=== PATIENT | female | born 1955 | race Caucasian/White ===

== ENCOUNTER 2018-12-08 19:28 | Emergency (ER) | payer OTHER, SELFPAY ==
[2018-12-08 19:30] VITALS: BP 158/76; PULSE 90; RESP 18; TEMP 37.1; O2SAT 97; BMI 31.3
--- NOTE | 2018-12-08 19:39 | DI.US.S_ITS ---
PROCEDURE: US PERIPH VENOUS LOW EXTREM RT INDICATIONS: RIGHT LEG SWELLING AND CALF PAIN TECHNIQUE: Real-time imaging, as well as color and pulse Doppler interrogation, were performed of the lower extremity deep veins from the inguinal ligament to the popliteal fossa. COMPARISON: None. FINDINGS: The common femoral, femoral and popliteal veins are normally compressible, and free of intraluminal thrombus. Color and pulse Doppler demonstrate normal phasic intraluminal flow. There is normal augmentation response to distal compression maneuver. There is to be an intramuscular hematoma at the right lower extremity measuring up to 1.5 x 8.4 x 19.4 cm in the current area clinical concern. IMPRESSION: No DVT found. Presumed intramuscular hematoma as discussed above within the area of current clinical concern. Dictated by: Mariano Kam M.D. on 12/08/2018 at 21:29 Approved by: Mariano Kam M.D. on 12/08/2018 at 21:30
--- NOTE | 2018-12-08 19:54 | ED.EXTPRO ---
HPI - Extremity Problem <GIANLUCA Watson - Last Filed: 12/08/18 21:19> General Chief complaint: Extremity Problem,Nontraumatic Stated complaint: pain left leg, sent to rule out blood clot Time Seen by Provider: 12/08/18 19:32 Source: patient Mode of arrival: ambulatory Limitations: no limitations History of Present Illness HPI Narrative: 63-year-old female that a significant medical history, presents emergency department today complaining of right leg swelling for the past week. She states the swelling started a week ago while at work, patient states she works at [email or web address] and is often walking around and standing a lot. She states that she has been struggling with her rate knee swelling due to arthritis. Patient states a few days ago she noticed that the pain started to develop in her calf, she presented to the emergency department she was worried about a blood clot. Denies any history of blood clots or taking any blood thinner. She denies dizziness, chest pain, shortness of breath, headaches, vision changes, nausea, vomiting, bowel or bladder changes, or syncope. MD Complaint: extremity pain Review of Systems <GIANLUCA Watson - Last Filed: 12/08/18 21:19> Review of Systems PHYSICAL EXAMINATION: GENERAL: Well groomed, alert, and cooperative. Answers questions promptly and appropriately. Vital signs noted. HENT: Normocephalic, atraumatic. EYES: Symmetrical, sclera white, no periorbital swelling. CARDIOVASCULAR: S1 and S2 sounds normal. Regular rate and rhythm, no murmurs, clicks, or bruits. No pedal edema. RESPIRATORY: Normal respiratory rate, trachea midline, airway patent. No stridor, nasal flaring or accessory muscle use. Lungs are clear in all martell. MUSCULOSKELETAL: Normal gait and coordination. Equal tone and mass bilaterally. No spinal tenderness or deformities. EXTREMITIES: CMS intact. No pedal edema. SKIN: Warm, dry, soft, appropriate color for ethnicity. No lesions, rashes, or wounds. NEURO: Alert and Oriented X 3. No sensory deficits. PSYCH: Appropriate affect and mood. PFSH <GIANLUCA Watson - Last Filed: 12/08/18 21:19> Medical History No significant medical problems (Acute) Social History Smoking Status: Never smoker Social History Smoking Status: Never smoker Exam <GIANLUCA Watson - Last Filed: 12/08/18 21:19> Initial Vital Signs Initial Vital Signs: Vital Signs Temperature 98.8 F 12/08/18 19:30 Pulse Rate 90 12/08/18 19:30 Respiratory Rate 18 12/08/18 19:30 Blood Pressure 158/76 H 12/08/18 19:30 Pulse Oximetry 97 12/08/18 19:30 PHYSICAL EXAMINATION: GENERAL: Well groomed, alert, and cooperative. Answers questions promptly and appropriately. Vital signs noted. HENT: Normocephalic, atraumatic. EYES: Symmetrical, sclera white, no periorbital swelling. CARDIOVASCULAR: S1 and S2 sounds normal. Regular rate and rhythm, no murmurs, clicks, or bruits. No pedal edema. RESPIRATORY: Normal respiratory rate, trachea midline, airway patent. No stridor, nasal flaring or accessory muscle use. Lungs are clear in all martell. MUSCULOSKELETAL: Significant right lower extremity edema that is concentrated around her right ankle, slight edema located around the medial aspect of her knee. No erythema, increased warmth, ecchymosis, or tenderness with palpation to ankle or knee. Patient exhibited calf tenderness upon palpation. Normal gait and coordination. Equal tone and mass bilaterally. No spinal tenderness or deformities. EXTREMITIES: CMS intact. SKIN: Warm, dry, soft, appropriate color for ethnicity. No lesions, rashes, or wounds. NEURO: Alert and Oriented X 3. No sensory deficits. PSYCH: Appropriate affect and mood. <Sameer Alberto MD - Last Filed: 12/09/18 04:30> Initial Vital Signs Initial Vital Signs: Vital Signs Temperature 98.8 F 12/08/18 19:30 Pulse Rate 90 12/08/18 19:30 Respiratory Rate 18 12/08/18 19:30 Blood Pressure 158/76 H 12/08/18 19:30 Pulse Oximetry 97 12/08/18 19:30 Course <GIANLUCA Watson - Last Filed: 12/08/18 21:19> Course Narrative: Patient presented to eating nurse's test before her results were complete stating that she needed to catch the very, she was offered an Against Medical Advice form which she signed. I advised patient that she should wait for the results as further treatment would be required if she has a blood clot, the risks of leaving would be financial liability as well as further injury or even , patient left before her ultrasound was resulted. Against Medical Advice form signed and witnessed by RN. Orders Ordered: ED Orders 12/08/18 19:39 US periph venous low extrem rt Stat 12/08/18 19:55 B Type Natriuretic Peptide Stat Complete Blood Count AUTO DIFF Stat Comprehensive Metabolic Panel Stat Partial Thromboplastin Time Stat Prothrombin Time INR Stat Consultations Consultation #1: Consulted with Dr. Alberto. Vital Signs - 8 hr 12/08/18 20:30 Pulse Rate 96 H Blood Pressure [Right Arm] 112/63 Pulse Oximetry 66 L <Sameer Alberto MD - Last Filed: 12/09/18 04:30> Orders Ordered: ED Orders 12/08/18 19:39 US periph venous low extrem rt Stat 12/08/18 19:55 B Type Natriuretic Peptide Stat Complete Blood Count AUTO DIFF Stat Comprehensive Metabolic Panel Stat Partial Thromboplastin Time Stat Prothrombin Time INR Stat Vital Signs - 8 hr 12/08/18 20:30 Pulse Rate 96 H Blood Pressure [Right Arm] 112/63 Pulse Oximetry 66 L MDM - Extremity (Nontraumatic) <GIANLUCA Watson - Last Filed: 12/08/18 21:19> Medical Records Attestation: I reviewed the patient's medical records. Lab Data Attestation: I reviewed the patient's lab results. Result diagrams: 12/08/18 19:55 12/08/18 19:55 Lab Results 12/08/18 12/08/18 12/08/18 Range/Units 19:55 19:55 19:55 WBC 6.3 (4.5-11.0) X10^3/uL RBC 4.70 (4.0-5.2) X10^6/uL Hgb 14.7 (12.0-16.0) g/dL Hct 44.2 (36-46) % MCV 94.1 (80-100) fL MCH 31.2 (26-34) PG MCHC 33.2 (30-36) % RDW 12.7 (11.6-14.8) % Plt Count 297 (150-400) X10^3/uL Neut % (Auto) 58.2 (50-75) % Lymph % (Auto) 31.1 (25-40) % [place] % (Auto) 7.4 (3-14) % Eos % (Auto) 2.9 (2-4) % Baso % (Auto) 0.4 (0-2) % Neut # (Auto) 3700 (9014-6625) /uL Lymph # (Auto) 2000 (9176-0786) /uL [place] # (Auto) 500 (0-900) /uL Eos # (Auto) 200 (0-450) /uL Baso # (Auto) 0 (0-100) /uL PT 10.8 (10.1-12.7) SECONDS INR 0.9 (0.9-1.3) APTT 35 (26.4-36.2) SECONDS Sodium 143 (137-145) mmol/L Potassium 3.9 (3.4-5.1) mmol/L Chloride 103 (98-107) mmol/L Carbon Dioxide 30 (22-32) mmol/L BUN 10 (7-17) mg/dL Creatinine 0.60 (0.52-1.04) mg/dL Estimated GFR > 60.0 (>60) mL/min BUN/Creatinine Ratio 16.7 (6-22) Glucose 117 H (80-110) mg/dL Calcium 10.7 H (8.4-10.2) mg/dL Total Bilirubin 0.5 (0.2-1.3) mg/dL AST 29 (14-36) IU/L ALT 26 (9-52) IU/L Alkaline Phosphatase 88 (38-126) U/L B-Natriuretic Peptide < 100 (<100) Total Protein 8.0 (6.3-8.2) g/dL Albumin 4.7 (3.5-5.0) g/dL Globulin 3.3 (1.7-4.1) g/dL Albumin/Globulin Ratio 1.4 (1.0-2.8) Imaging Data Venous US: My impression: The preliminary results per artificial insemination technician's stated that it appeared that the patient had a soft tissue hematoma and that there were no DVTs present. MDM Narrative Medical decision making narrative: Differential includes intramuscular hematoma (most likely is noted on ultrasound, normal labs, tenderness with examination of calf), DVT (less likely due to lack of presence on ultrasound, very low risk factors), muscular strain, infection/abscess (not suspected due to lack of increased warmth, or no presence of erythema, a history of a wound, no systemic symptoms such as fever). <Sameer Alberto MD - Last Filed: 12/09/18 04:30> Lab Data Lab Results 12/08/18 12/08/18 12/08/18 Range/Units 19:55 19:55 19:55 WBC 6.3 (4.5-11.0) X10^3/uL RBC 4.70 (4.0-5.2) X10^6/uL Hgb 14.7 (12.0-16.0) g/dL Hct 44.2 (36-46) % MCV 94.1 (80-100) fL MCH 31.2 (26-34) PG MCHC 33.2 (30-36) % RDW 12.7 (11.6-14.8) % Plt Count 297 (150-400) X10^3/uL Neut % (Auto) 58.2 (50-75) % Lymph % (Auto) 31.1 (25-40) % [place] % (Auto) 7.4 (3-14) % Eos % (Auto) 2.9 (2-4) % Baso % (Auto) 0.4 (0-2) % Neut # (Auto) 3700 (8326-1390) /uL Lymph # (Auto) 2000 (8030-6385) /uL [facility] # (Auto) 500 (0-900) /uL Eos # (Auto) 200 (0-450) /uL Baso # (Auto) 0 (0-100) /uL PT 10.8 (10.1-12.7) SECONDS INR 0.9 (0.9-1.3) APTT 35 (26.4-36.2) SECONDS Sodium 143 (137-145) mmol/L Potassium 3.9 (3.4-5.1) mmol/L Chloride 103 (98-107) mmol/L Carbon Dioxide 30 (22-32) mmol/L BUN 10 (7-17) mg/dL Creatinine 0.60 (0.52-1.04) mg/dL Estimated GFR > 60.0 (>60) mL/min BUN/Creatinine Ratio 16.7 (6-22) Glucose 117 H (80-110) mg/dL Calcium 10.7 H (8.4-10.2) mg/dL Total Bilirubin 0.5 (0.2-1.3) mg/dL AST 29 (14-36) IU/L ALT 26 (9-52) IU/L Alkaline Phosphatase 88 (38-126) U/L B-Natriuretic Peptide < 100 (<100) Total Protein 8.0 (6.3-8.2) g/dL Albumin 4.7 (3.5-5.0) g/dL Globulin 3.3 (1.7-4.1) g/dL Albumin/Globulin Ratio 1.4 (1.0-2.8) Discharge Plan Departure Patient Disposition: Left Against Medical Advice Clinical Impression: Leg swelling Discharge Date/Time: 12/08/18 20:50 Interventions: ED Discharge Assessment Last Done: 12/08/18 20:52 Instructions: DI for Leg Pain Activity Restrictions/Additional Instructions: Thank you for entrusting me with your care today. As discussed, we advised you to stay to wait for your ultrasound results. Your lab work was negative for any acute or concerning findings. Please follow up with her doctor in the next week if symptoms can continue. Return to the emergency department if you experience shortness of breath, chest pain, uncontrolled vomiting, or syncope. <Sameer Alberto MD - Last Filed: 12/09/18 04:30> [facility] [address] [address] Ultrasound Report Signed Patient: Aquilino Mckoy KMR#: [id number] : 6Acct:[id number] Age/Sex: 63 / FDate of Service: 12/08/18 Loc: ED Accession Number: [id number] Procedure: US periph venous low extrem rt Ordering Provider: Jessica Saez PROCEDURE: US PERIPH VENOUS LOW EXTREM RT INDICATIONS: RIGHT LEG SWELLING AND CALF PAIN TECHNIQUE: Real-time imaging, as well as color and pulse Doppler interrogation, were performed of the lower extremity deep veins from the inguinal ligament to the popliteal fossa. COMPARISON: None. FINDINGS: The common femoral, femoral and popliteal veins are normally compressible, and free of intraluminal thrombus. Color and pulse Doppler demonstrate normal phasic intraluminal flow. There is normal augmentation response to distal compression maneuver. There is to be an intramuscular hematoma at the right lower extremity measuring up to 1.5 x 8.4 x 19.4 cm in the current area clinical concern. IMPRESSION: No DVT found. Presumed intramuscular hematoma as discussed above within the area of current clinical concern. Dictated by: Mariano Kam M.D. on 12/08/2018 at 21:29 Approved by: Mariano Kam M.D. on 12/08/2018 at 21:30 There is no evidence of DVT on the evaluation. The patient's care and treatment plan was reviewed with the treating provider, GIANLUCA Saez. I agree with the evaluation and treatment plan.
--- NOTE | 2018-12-08 19:56 | PC.NURSE ---
PT states RLE calf pain and swelling since last that began with R knee pain. Pt sent from [facility] for R/O DVT. R foot is warm to touch with pedal pulse present. 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 Pt denies any recent travel or hx of DVT.
--- NOTE | 2018-12-08 19:57 | ED_ITS ---
HPI - Extremity Problem <GIANLUCA Watson - Last Filed: 12/08/18 21:19> General Chief complaint: Extremity Problem,Nontraumatic Stated complaint: pain left leg, sent to rule out blood clot Time Seen by Provider: 12/08/18 19:32 Source: patient Mode of arrival: ambulatory Limitations: no limitations History of Present Illness HPI Narrative: 63-year-old female that a significant medical history, presents emergency department today complaining of right leg swelling for the past week. She states the swelling started a week ago while at work, patient states she works at [employer] and is often walking around and standing a lot. She states that she has been struggling with her rate knee swelling due to arthritis. Patient states a few days ago she noticed that the pain started to develop in her calf, she presented to the emergency department she was worried about a blood clot. Denies any history of blood clots or taking any blood thinner. She denies dizziness, chest pain, shortness of breath, headaches, vision changes, nausea, vomiting, bowel or bladder changes, or syncope. MD Complaint: extremity pain Review of Systems <GIANLUCA Watson - Last Filed: 12/08/18 21:19> Review of Systems PHYSICAL EXAMINATION: GENERAL: Well groomed, alert, and cooperative. Answers questions promptly and appropriately. Vital signs noted. HENT: Normocephalic, atraumatic. EYES: Symmetrical, sclera white, no periorbital swelling. CARDIOVASCULAR: S1 and S2 sounds normal. Regular rate and rhythm, no murmurs, clicks, or bruits. No pedal edema. RESPIRATORY: Normal respiratory rate, trachea midline, airway patent. No stridor, nasal flaring or accessory muscle use. Lungs are clear in all martell. MUSCULOSKELETAL: Normal gait and coordination. Equal tone and mass bilaterally. No spinal tenderness or deformities. EXTREMITIES: CMS intact. No pedal edema. SKIN: Warm, dry, soft, appropriate color for ethnicity. No lesions, rashes, or wounds. NEURO: Alert and Oriented X 3. No sensory deficits. PSYCH: Appropriate affect and mood. PFSH <GIANLUCA Watson - Last Filed: 12/08/18 21:19> Medical History No significant medical problems (Acute) Social History Smoking Status: Never smoker Social History Smoking Status: Never smoker Exam <GIANLUCA Watson - Last Filed: 12/08/18 21:19> Initial Vital Signs Initial Vital Signs: Vital Signs Temperature 98.8 F 12/08/18 19:30 Pulse Rate 90 12/08/18 19:30 Respiratory Rate 18 12/08/18 19:30 Blood Pressure 158/76 H 12/08/18 19:30 Pulse Oximetry 97 12/08/18 19:30 PHYSICAL EXAMINATION: GENERAL: Well groomed, alert, and cooperative. Answers questions promptly and appropriately. Vital signs noted. HENT: Normocephalic, atraumatic. EYES: Symmetrical, sclera white, no periorbital swelling. CARDIOVASCULAR: S1 and S2 sounds normal. Regular rate and rhythm, no murmurs, clicks, or bruits. No pedal edema. RESPIRATORY: Normal respiratory rate, trachea midline, airway patent. No stridor, nasal flaring or accessory muscle use. Lungs are clear in all martell. MUSCULOSKELETAL: Significant right lower extremity edema that is concentrated around her right ankle, slight edema located around the medial aspect of her knee. No erythema, increased warmth, ecchymosis, or tenderness with palpation to ankle or knee. Patient exhibited calf tenderness upon palpation. Normal gait and coordination. Equal tone and mass bilaterally. No spinal tenderness or deformities. EXTREMITIES: CMS intact. SKIN: Warm, dry, soft, appropriate color for ethnicity. No lesions, rashes, or wounds. NEURO: Alert and Oriented X 3. No sensory deficits. PSYCH: Appropriate affect and mood. <Sameer Alberto MD - Last Filed: 12/09/18 04:30> Initial Vital Signs Initial Vital Signs: Vital Signs Temperature 98.8 F 12/08/18 19:30 Pulse Rate 90 12/08/18 19:30 Respiratory Rate 18 12/08/18 19:30 Blood Pressure 158/76 H 12/08/18 19:30 Pulse Oximetry 97 12/08/18 19:30 Course <GIANLUCA Watson - Last Filed: 12/08/18 21:19> Course Narrative: Patient presented to eating nurse's test before her results were complete stating that she needed to catch the very, she was offered an Against Medical Advice form which she signed. I advised patient that she should wait for the results as further treatment would be required if she has a blood clot, the risks of leaving would be financial liability as well as further injury or even , patient left before her ultrasound was resulted. Against Medical Advice form signed and witnessed by RN. Orders Ordered: ED Orders 12/08/18 19:39 US periph venous low extrem rt Stat 12/08/18 19:55 B Type Natriuretic Peptide Stat Complete Blood Count AUTO DIFF Stat Comprehensive Metabolic Panel Stat Partial Thromboplastin Time Stat Prothrombin Time INR Stat Consultations Consultation #1: Consulted with Dr. Alberto. Vital Signs - 8 hr 12/08/18 20:30 Pulse Rate 96 H Blood Pressure [Right Arm] 112/63 Pulse Oximetry 66 L <Sameer Alberto MD - Last Filed: 12/09/18 04:30> Orders Ordered: ED Orders 12/08/18 19:39 US periph venous low extrem rt Stat 12/08/18 19:55 B Type Natriuretic Peptide Stat Complete Blood Count AUTO DIFF Stat Comprehensive Metabolic Panel Stat Partial Thromboplastin Time Stat Prothrombin Time INR Stat Vital Signs - 8 hr 12/08/18 20:30 Pulse Rate 96 H Blood Pressure [Right Arm] 112/63 Pulse Oximetry 66 L MDM - Extremity (Nontraumatic) <GIANLUCA Watson - Last Filed: 12/08/18 21:19> Medical Records Attestation: I reviewed the patient's medical records. Lab Data Attestation: I reviewed the patient's lab results. Result diagrams: 12/08/18 19:55 12/08/18 19:55 Lab Results 12/08/18 12/08/18 12/08/18 Range/Units 19:55 19:55 19:55 WBC 6.3 (4.5-11.0) X10^3/uL RBC 4.70 (4.0-5.2) X10^6/uL Hgb 14.7 (12.0-16.0) g/dL Hct 44.2 (36-46) % MCV 94.1 (80-100) fL MCH 31.2 (26-34) PG MCHC 33.2 (30-36) % RDW 12.7 (11.6-14.8) % Plt Count 297 (150-400) X10^3/uL Neut % (Auto) 58.2 (50-75) % Lymph % (Auto) 31.1 (25-40) % [place] % (Auto) 7.4 (3-14) % Eos % (Auto) 2.9 (2-4) % Baso % (Auto) 0.4 (0-2) % Neut # (Auto) 3700 (8606-9804) /uL Lymph # (Auto) 2000 (0669-9572) /uL [place] # (Auto) 500 (0-900) /uL Eos # (Auto) 200 (0-450) /uL Baso # (Auto) 0 (0-100) /uL PT 10.8 (10.1-12.7) SECONDS INR 0.9 (0.9-1.3) APTT 35 (26.4-36.2) SECONDS Sodium 143 (137-145) mmol/L Potassium 3.9 (3.4-5.1) mmol/L Chloride 103 (98-107) mmol/L Carbon Dioxide 30 (22-32) mmol/L BUN 10 (7-17) mg/dL Creatinine 0.60 (0.52-1.04) mg/dL Estimated GFR > 60.0 (>60) mL/min BUN/Creatinine Ratio 16.7 (6-22) Glucose 117 H (80-110) mg/dL Calcium 10.7 H (8.4-10.2) mg/dL Total Bilirubin 0.5 (0.2-1.3) mg/dL AST 29 (14-36) IU/L ALT 26 (9-52) IU/L Alkaline Phosphatase 88 (38-126) U/L B-Natriuretic Peptide < 100 (<100) Total Protein 8.0 (6.3-8.2) g/dL Albumin 4.7 (3.5-5.0) g/dL Globulin 3.3 (1.7-4.1) g/dL Albumin/Globulin Ratio 1.4 (1.0-2.8) Imaging Data Venous US: My impression: The preliminary results per power plant technician's stated that it appeared that the patient had a soft tissue hematoma and that there were no DVTs present. MDM Narrative Medical decision making narrative: Differential includes intramuscular hematoma (most likely is noted on ultrasound, normal labs, tenderness with examination of calf), DVT (less likely due to lack of presence on ultrasound, very low risk factors), muscular strain, infection/abscess (not suspected due to lack of increased warmth, or no presence of erythema, a history of a wound, no systemic symptoms such as fever). <Sameer Alberto MD - Last Filed: 12/09/18 04:30> Lab Data Lab Results 12/08/18 12/08/18 12/08/18 Range/Units 19:55 19:55 19:55 WBC 6.3 (4.5-11.0) X10^3/uL RBC 4.70 (4.0-5.2) X10^6/uL Hgb 14.7 (12.0-16.0) g/dL Hct 44.2 (36-46) % MCV 94.1 (80-100) fL MCH 31.2 (26-34) PG MCHC 33.2 (30-36) % RDW 12.7 (11.6-14.8) % Plt Count 297 (150-400) X10^3/uL Neut % (Auto) 58.2 (50-75) % Lymph % (Auto) 31.1 (25-40) % [place] % (Auto) 7.4 (3-14) % Eos % (Auto) 2.9 (2-4) % Baso % (Auto) 0.4 (0-2) % Neut # (Auto) 3700 (9983-3065) /uL Lymph # (Auto) 2000 (7604-6185) /uL [place] # (Auto) 500 (0-900) /uL Eos # (Auto) 200 (0-450) /uL Baso # (Auto) 0 (0-100) /uL PT 10.8 (10.1-12.7) SECONDS INR 0.9 (0.9-1.3) APTT 35 (26.4-36.2) SECONDS Sodium 143 (137-145) mmol/L Potassium 3.9 (3.4-5.1) mmol/L Chloride 103 (98-107) mmol/L Carbon Dioxide 30 (22-32) mmol/L BUN 10 (7-17) mg/dL Creatinine 0.60 (0.52-1.04) mg/dL Estimated GFR > 60.0 (>60) mL/min BUN/Creatinine Ratio 16.7 (6-22) Glucose 117 H (80-110) mg/dL Calcium 10.7 H (8.4-10.2) mg/dL Total Bilirubin 0.5 (0.2-1.3) mg/dL AST 29 (14-36) IU/L ALT 26 (9-52) IU/L Alkaline Phosphatase 88 (38-126) U/L B-Natriuretic Peptide < 100 (<100) Total Protein 8.0 (6.3-8.2) g/dL Albumin 4.7 (3.5-5.0) g/dL Globulin 3.3 (1.7-4.1) g/dL Albumin/Globulin Ratio 1.4 (1.0-2.8) Discharge Plan Departure Patient Disposition: Left Against Medical Advice Clinical Impression: Leg swelling Discharge Date/Time: 12/08/18 20:50 Interventions: ED Discharge Assessment Last Done: 12/08/18 20:52 Instructions: DI for Leg Pain Activity Restrictions/Additional Instructions: Thank you for entrusting me with your care today. As discussed, we advised you to stay to wait for your ultrasound results. Your lab work was negative for any acute or concerning findings. Please follow up with her doctor in the next week if symptoms can continue. Return to the emergency department if you experience shortness of breath, chest pain, uncontrolled vomiting, or syncope. <Sameer Alberto MD - Last Filed: 12/09/18 04:30> [facility] [address] [address] Ultrasound Report Signed Patient: Aquilino Mckoy KMR#: [id number] : 6Acct:[id number] Age/Sex: 63 / FDate of Service: 12/08/18 Loc: ED Accession Number: [id number] Procedure: US periph venous low extrem rt Ordering Provider: Jessica Saez PROCEDURE: US PERIPH VENOUS LOW EXTREM RT INDICATIONS: RIGHT LEG SWELLING AND CALF PAIN TECHNIQUE: Real-time imaging, as well as color and pulse Doppler interrogation, were performed of the lower extremity deep veins from the inguinal ligament to the popliteal fossa. COMPARISON: None. FINDINGS: The common femoral, femoral and popliteal veins are normally com pressible, and free of intraluminal thrombus. Color and pulse Doppler demonstrate normal phasic intraluminal flow. There is normal augmentation response to distal compression maneuver. There is to be an intramuscular hematoma at the right lower extremity measuring up to 1.5 x 8.4 x 19.4 cm in the current area clinical concern. IMPRESSION: No DVT found. Presumed intramuscular hematoma as discussed above within the area of current clinical concern. Dictated by: Mariano Kam M.D. on 12/08/2018 at 21:29 Approved by: Mariano Kam M.D. on 12/08/2018 at 21:30 There is no evidence of DVT on the evaluation. The patient's care and treatment plan was reviewed with the treating provider, GIANLUCA Saez. I agree with the evaluation and treatment plan.
[2018-12-08 19:59] LABS: Add Manual Diff / Slide Review NO; Basophils Absolute Auto 0 /uL (0-100); Basophils Percent Auto 0.4 % (0-2); Eosinophils Absolute Auto 200 /uL (0-450); Eosinophils Percent Auto 2.9 % (2-4); Hematocrit 44.2 % (36-46); Hemoglobin 14.7 g/dL (12.0-16.0); Lymphocytes Absolute Auto 2000 /uL (1100-4500); Lymphocytes Percent Auto 31.1 % (25-40); Mean Corpuscular HGB Conc 33.2 % (30-36); Mean Corpuscular Hemoglobin 31.2 PG (26-34); Mean Corpuscular Volume 94.1 fL (80-100); Monocytes Absolute Auto 500 /uL (0-900); Monocytes Percent Auto 7.4 % (3-14); Neutrophils Absolute Auto 3700 /uL (1500-7000); Neutrophils Percent Auto 58.2 % (50-75); Platelet Count 297 X10^3/uL (150-400); Red Cell Distribution Width 12.7 % (11.6-14.8); White Blood Cell Count 6.3 X10^3/uL (4.5-11.0)
[2018-12-08 20:07] LABS: INR 0.9 (0.9-1.3); Prothrombin Time 10.8 SECONDS (10.1-12.7)
[2018-12-08 20:10] LABS: PTT Partial Thromboplastin Tim 35 SECONDS (26.4-36.2)
[2018-12-08 20:11] LABS: Alanine Aminotransferase 26 IU/L (9-52); Albumin 4.7 g/dL (3.5-5.0); Albumin Globulin Ratio 1.4 (1.0-2.8); Alkaline Phosphatase 88 U/L (38-126); Aspartate Aminotransferase 29 IU/L (14-36); BUN Creatinine Ratio 16.7 (6-22); Bilirubin Total 0.5 mg/dL (0.2-1.3); Blood Urea Nitrogen 10 mg/dL (7-17); Calcium 10.7 mg/dL (8.4-10.2); Carbon Dioxide 30 mmol/L (22-32); Chloride 103 mmol/L (98-107); Estimated Glomerular Filt Rate > 60.0 mL/min (>60); Globulin 3.3 g/dL (1.7-4.1); Glucose 117 mg/dL (80-110); HEMOLYSIS < 15 (0-50); Potassium 3.9 mmol/L (3.4-5.1); Sodium 143 mmol/L (137-145)
[2018-12-08 20:30] VITALS: BP 112/63; PULSE 96; O2SAT 66
[2018-12-08 20:30] LABS: B Type Natriuretic Peptide < 100 (<100)
== END 2018-12-08 20:50 | disposition left against medical advice (07) ==
PROVIDERS: Emergency Provider Nurse Practitioner
DX: M79.89 Other specified soft tissue disorders (principal)
CPT/HCPCS: 36415; 80053; 83880; 85025; 85610; 85730; 93971; 99282; 99284